=== PATIENT | female | born 1990 | race American Indian/Alaskan Native ===

== ENCOUNTER 2019-07-09 23:56 | Emergency (ER) | payer SELFPAY ==
--- NOTE | 2019-07-10 04:22 | Emergency Department Report ---
ED Female HPI - General Chief complaint: Urogenital-Female Stated complaint: DIZZINESS, PELVIC, DISCHARGE Time Seen by Provider: 07/10/19 03:34 Source: patient Mode of arrival: Ambulatory Limitations: No Limitations - History of Present Illness Initial comments: Patient is a 29-year-old female presents emergency room with complaints of pelvic pain that began 3 days ago. She has associated white vaginal discharge and urinary frequency. She denies any dysuria, abdominal pain, fever, nausea, vomiting. She denies any past medical history or allergies medications. She states she has an STD history of chlamydia. Patient states her last menstrual cycle was 06/28/2019. - Related Data Previous Rx's Medication Instructions Recorded Last Taken Type Fluconazole [Diflucan TAB] 150 mg PO ONCE #1 tablet 07/10/19 Unknown Rx metroNIDAZOLE [Flagyl] 500 mg PO BID 7 Days #14 tab 07/10/19 Unknown Rx Allergies Allergy/AdvReac Type Severity Reaction Status Date / Time No Known Allergies Allergy Unverified 07/10/19 00:44 ED Review of Systems ROS: Stated complaint: DIZZINESS, PELVIC, DISCHARGE Other details as noted in HPI Comment: All other systems reviewed and negative ED Past Medical Hx - Past Medical History Previous Medical History?: Yes Hx Asthma: Yes - Surgical History Past Surgical History?: No - Medications Home Medications: Home Medications Medication Instructions Recorded Confirmed Last Taken Type Fluconazole [Diflucan TAB] 150 mg PO ONCE #1 tablet 07/10/19 Unknown Rx metroNIDAZOLE [Flagyl] 500 mg PO BID 7 Days #14 tab 07/10/19 Unknown Rx ED Physical Exam - General Limitations: No Limitations General appearance: alert, in no apparent distress - Head Head exam: Present: atraumatic, normocephalic - Eye Eye exam: Present: normal appearance - ENT ENT exam: Present: mucous membranes moist - Respiratory Respiratory exam: Present: normal lung sounds bilaterally. Absent: respiratory distress, wheezes, rales, rhonchi, stridor, chest wall tenderness, accessory muscle use, decreased breath sounds, prolonged expiratory - Cardiovascular Cardiovascular Exam: Present: regular rate, normal rhythm, normal heart sounds. Absent: systolic murmur, diastolic murmur, rubs, gallop - GI/Abdominal GI/Abdominal exam: Present: soft, normal bowel sounds. Absent: distended, ten derness, guarding, rebound, rigid - External exam: Present: normal external exam. Absent: erythema, swelling, lesions, lacerations, ecchymosis, bleeding Speculum exam: Present: vaginal discharge (white), cervical discharge (white), other (software quality automation engineer: PHIL julien). Absent: vaginal bleeding, foreign body, tissue, laceration Bi-manual exam: Present: normal bi-manual exam. Absent: cervical motion tendernes, adnexal tenderness, adnexal mass - Neurological Exam Neurological exam: Present: alert, oriented X3 - Psychiatric Psychiatric exam: Present: normal affect, normal mood - Skin Skin exam: Present: warm, dry, intact ED Course Vital Signs 07/10/19 05:30 Temperature 98.8 F Pulse Rate 73 Respiratory 16 Rate Blood Pressure 126/87 [Right] O2 Sat by Pulse 100 Oximetry ED Medical Decision Making - Medical Decision Making Patient is a 29-year-old female presents emergency room with complaints of pelvic pain that began 3 days ago. She has associated white vaginal discharge and urinary frequency. She denies any dysuria, abdominal pain, fever, nausea, vomiting. She denies any past medical history or allergies medications. She states she has an STD history of chlamydia. Patient states her last menstrual cycle was 06/28/2019. Vitals are normal. Pelvic examination performed with software quality automation engineer and shows white discharge present, no CMT, no adnexal masses or tenderness. UA is within normal limits, urine is negative. Wet prep shows yeast and bacterial vaginosis. G/C swab sent, patient states that she is not concerned for an STD and would like to wait for results before being treated. She given prescription for Diflucan and metronidazole. advised pt to Please take medication as prescribed. Do not take alcohol while taking medication. 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 Please have partner tested and treated as well. Follow up with a primary care doctor and an DISPOSAL OPERATOR. Please be seen by the health department for full STD panel. Return to the emergency room for any new or worsening symptoms - Differential Diagnosis UTI, yeast, BV, STD, vaginitis Critical care attestation.: If time is entered above; I have spent that time in minutes in the direct care of this critically ill patient, excluding procedure time. ED Disposition Clinical Impression: Pelvic pain, Vulvovaginal candidiasis, Bacterial vaginosis Disposition: TO HOME OR SELFCARE Is pt being admited?: No Does the pt Need Aspirin: No Condition: Stable Instructions: Bacterial Vaginosis (ED), Vulvovaginal Candidiasis (ED) Additional Instructions: Please take medication as prescribed. Do not take alcohol while taking medication. 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 Please have partner tested and treated as well. Follow up with a primary care doctor and an DISPOSAL OPERATOR. Please be seen by the health department for full STD panel. Return to the emergency room for any new or worsening symptoms. Prescriptions: Fluconazole [Diflucan TAB] 150 mg PO ONCE #1 tablet metroNIDAZOLE [Flagyl] 500 mg PO BID 7 Days #14 tab Referrals: RIMA CHISHOLM MD [Staff Physician] - 2-3 Days [facility] [Provider Group] - 2-3 Days [facility] [Outside] - 2-[address] [facility] [Outside] - 2-3 Days Forms: STI Treatment and Prevention Time of Disposition: 05:10 Print Language: [place]LAND[place]
[2019-07-10 04:23] LABS: Bilirubin,Urine NEG (Negative); Blood,Urine NEG (Negative); Color,Urine Yellow (Yellow); Protein,Urine <15 mg/dL mg/dL (Negative); Urobilinogen,Urine < 2.0 mg/dL (<2.0); WBC,Urine < 1.0 /HPF (0.0-6.0)
[2019-07-10 04:32] LABS: HCG Qualitative,Urine Negative (Negative)
[2019-07-10 05:46] VITALS: BP 126/87
== END 2019-07-10 05:30 | disposition home or self-care (01) ==
LOC: ED 23:56
DX: N76.0 Acute vaginitis (principal); B96.89 Other specified bacterial agents as the cause of diseases classified elsewhere; B37.3 Candidiasis of vulva and vagina
CPT/HCPCS: 81001; 81025; 87210; 87591